=== PATIENT | female | born 1985 | race Caucasian/White ===

== ENCOUNTER 2017-03-13 05:44 | Day surgery (SDC) | payer OTHER ==
[2017-03-12 10:08] VITALS: BMI 33.3
[~2017-03-13] VITALS: Ht 154.9 cm; Wt 80.3 kg
[2017-03-13] VITALS (13 sets, daily range): BP systolic 112–128; BP diastolic 59–77; PULSE 50–82; RESP 12–27; Ht 154.9 cm; Wt 80.3 kg
[2017-03-13] MEDS ORDERED: ONDANSETRON 4 MG INJ IV PRN ×2 (06:30→10:30)
[2017-03-13] MEDS ORDERED: FENTAnyl 50 MCG/ML VIAL IV PRN ×2 (06:30)
[2017-03-13] MEDS ORDERED: MIDAZOLAM 1 MG/ML 2 ML INJ IV PRN (06:30)
[2017-03-13] MEDS ORDERED: morphine (1 MG/ML) 10ML SYRINGE IV PRN ×3 (06:30)
[2017-03-13] MEDS ORDERED: EPHEDrine SULFATE 50 MG/5 ML SYG IV PRN (06:30)
[2017-03-13] MEDS ORDERED: LABETALOL HCL 20MG INJ IV PRN (06:30)
[2017-03-13] MEDS ORDERED: OXYCODONE/ACETAMINOPHEN (5/325) TAB PO PRN ×4 (06:30→10:30)
[2017-03-13] MEDS ORDERED: DIPHENHYDRAMINE 50 MG INJ IV PRN (06:30)
[2017-03-13] MEDS ORDERED: hydrALAzine 20 MG INJ IV PRN (06:30)
[2017-03-13] MEDS ORDERED: HYDROmorphONE (0.2 MG/ML) 10ML SYG IV PRN ×3 (06:30)
[2017-03-13] MEDS ORDERED: MEPERIDINE 25 MG INJ IV PRN (06:30)
[2017-03-13] MEDS ORDERED: ATROPINE 1 MG/10 ML SYRINGE IV PRN (06:30)
--- NOTE | 2017-03-13 07:23 | HPN ---
Date/Time of Note Date/Time of Note DATE: 03/13/17 TIME: 07:23 Interval H&P Admission Note Pt. seen H&P reviewed: No system changes HAYDE WHITE MD Mar 13, 2017 07:23
[2017-03-13] MEDS ORDERED: LIDOCAINE 2% (SDV) 5 ML INJ ONE (08:10)
[2017-03-13] MEDS ORDERED: GLYCOPYRROLATE 0.4 MG INJ ONE (08:10)
[2017-03-13] MEDS ORDERED: PROPOFOL 20 ML ONE (08:10)
[2017-03-13] MEDS ORDERED: ROCURONIUM 50 MG INJ ONE (08:10)
[2017-03-13] MEDS ORDERED: FENTAnyl 50 MCG/ML VIAL ONE (08:10)
[2017-03-13] MEDS ORDERED: DEXAMETHASONE 4 MG/ML 1 ML INJ ONE (08:10)
[2017-03-13] MEDS ORDERED: MIDAZOLAM 1 MG/ML 2 ML INJ ONE (08:10)
[2017-03-13] MEDS ORDERED: NEOSTIGMINE 3 MG/3 ML SYRINGE ONE (08:10)
[2017-03-13] MEDS ORDERED: ONDANSETRON 4 MG INJ ONE (08:11)
[2017-03-13] MEDS ORDERED: SUCCINYLCHOLINE CHLORIDE 100 MG/5 ML SYG IV ONE (08:12)
[2017-03-13] MEDS ORDERED: BUPIVACAINE 0.25%/EPI (SDV) 30 ML INJ ONE (09:01)
[2017-03-13] MEDS ORDERED: LABETALOL HCL 20MG INJ ONE (09:28)
--- NOTE | 2017-03-13 10:01 | OPR ---
Date/Time of Note Date/Time of Note DATE: 03/13/17 TIME: 09:57 Operative Report Procedure Date: Mar 13, 2017 Preoperative Diagnosis Gallstones without obstruction Postoperative Diagnosis Gallstones without obstruction Operation/Procedure Performed Laparoscopic cholecystectomy Surgeon Hayde White MD Rn Internal Medicine None Anesthesia Type: general Anesthesiologist: MATT RANDLE MD Estimated Blood Loss: 0 - 10 ml's Transfusion none Specimen Gallbladder Grafts/Implants none Tubes/Drains None Complications none Pt Condition Post Procedure: stable Disposition: PACU Indications Symptomatic cholelithiasis Procedure Description After satisfactory general endotracheal anesthesia was achieved, the abdomen was prepped and draped in the usual fashion. The abdomen was insufflated with carbon dioxide through an umbilical Veress needle to 15 mmHg pressure. The Veress needle was removed and the umbilical incision extended to 5 mm through which a 5 mm trocar was placed. A 5 mm 0 lens was placed. Laparoscopy was unremarkable. Under direct visualization an 11 mm epigastric trocar was placed as well as 2 5 mm right lateral abdominal trochars. The dome of the gallbladder was grasped and retracted superiorly Head's pouch was grasped and retracted infero-laterally. The hepatoduodenal ligament was carefully dissected. The cystic duct and cystic artery were dissected between the gallbladder and the well-visualized kath hepatis. The cystic duct was then quadruply hemoclipped and divided high at the junction of the gallbladder and the cystic duct. The cystic artery was triply hemoclipped and divided. The gallbladder was then dissected from below using electrocautery dissection and placed fully intact into an Endo Catch removed via the epigastric route. Hemostasis of the liver bed was total irrigant returned clear. The abdomen was then desufflated and the trochars were removed. The fascia of the epigastrium was closed with 3 sutures of 0 Vicryl. The skin punctures were infiltrated with 30 cc of 0.25% Marcaine with epinephrine and closed with harlan. Sponge and needle counts were reported as correct 2. HAYDE WHITE MD Mar 13, 2017 10:01
[2017-03-13] MEDS ORDERED: morphine 2 MG INJ IV PRN (10:30)
== END 2017-03-13 12:20 | disposition home or self-care (01) ==
LOC: SDS 05:44
PROVIDERS: ATTEND Surgery
DX: K80.10 Calculus of gallbladder with chronic cholecystitis without obstruction (principal)
CPT/HCPCS: 47562; 84703; 88304; J1100; J2250; J2405; J2710; J3010; Z7512; Z7610